=== PATIENT | male | born 1950 | race Caucasian/White ===

== ENCOUNTER 2017-04-08 08:13 | Day surgery (SDC) | payer MEDICARE, OTHER ==
[~2017-04-08] VITALS: Ht 177.8 cm; Wt 77.1 kg
[~2017-04-08 08:13] MED LIST: CITALOPRAM HBR40 MG PO; CLONAZEPAM1 MG PO; GABAPENTIN300 MG PO; LIPITOR10 MG PO; LISINOPRIL20 MG PO; LORAZEPAM1 MG PO; SEROQUEL50 MG PO; TRAZODONE HCL100 MG PO; VENLAFAXINE HC150 M1 PO
== END 2017-04-08 09:59 | disposition home or self-care (01) ==
LOC: DS 08:13 → OPS 08:13 → DS 09:15 → OPS 09:15
PROVIDERS: Ophthalmology
PROC: 08RK3JZ Replacement of Left Lens with Synthetic Substitute, Percutaneous Approach (ICD-10-PCS; principal; 2017-04-08 09:15)
DX: H25.812 Combined forms of age-related cataract, left eye (principal); I10 Essential (primary) hypertension; E78.00 Pure hypercholesterolemia, unspecified; F32.9 Major depressive disorder, single episode, unspecified; Z87.891 Personal history of nicotine dependence; Z85.828 Personal history of other malignant neoplasm of skin; Z98.890 Other specified postprocedural states; Z88.0 Allergy status to penicillin; Z88.1 Allergy status to other antibiotic agents; Z88.8 Allergy status to other drugs, medicaments and biological substances; Z79.899 Other long term (current) drug therapy
CPT/HCPCS: 00140; J2250